=== PATIENT | female | born 1965 | race Caucasian/White ===

== ENCOUNTER → 2018-11-14 | Day surgery (SDC) | payer OTHER ==
[2018-11-11 15:48] LABS: Basophils # (auto) 0.1 uL; Basophils % (auto) 1.1 % (0.0-2.0); Eosinophils # (auto) 0.6 uL; Eosinophils % (auto) 9.2 % (0.0-7.0); Hematocrit 37.3 % (36.0-46.0); Hemoglobin 12.2 g/dL (12.2-16.2); Lymphocytes # (auto) 1.5 uL; Lymphocytes % (auto) 24.4 % (10.0-50.0); Mean Corpuscular Hemoglobin 28.8 pg (28.0-32.0); Mean Corpuscular Hgb Conc. 32.6 g/dL (32.0-36.0); Mean Corpuscular Volume 88.2 fL (80.0-100.0); Monocytes # (auto) 0.6 uL; Monocytes % (auto) 9.9 % (0.0-12.0); Neutrophils # (auto) 3.4 uL; Neutrophils % (auto) 55.4 % (37.0-80.0); Nucleated Red Blood Cells % 0.1 %; Platelet Count (auto) 412 10^3/uL (140-450); Red Blood Cells 4.23 10^6/uL (4.0-5.20); White Blood Cell 6.2 10^3/uL (4.4-10.8)
[2018-11-11 15:52] LABS: Urine Bacteria NONE SEEN /hpf (None Seen); Urine Blood Negative /uL (Negative); Urine Hyaline Cast MOD /lpf (0 - 2); Urine Mucus FEW (None Seen); Urine WBC 1 /hpf (0 - 5)
[2018-11-11 16:11] LABS: Albumin 3.1 g/dL (3.4-5.0); BUN/Creatinine Ratio 12.7; Calcium 8.2 mg/dL (8.5-10.1); Potassium 5.5 mmol/L (3.5-5.1)
[2018-11-11 16:14] LABS: Bilirubin, Total 0.3 mg/dL (0.2-1.0); Total Protein 6.8 g/dL (6.4-8.2)
[2018-11-11 16:26] LABS: INR 1.01 (0.9-1.15); Partial Thromboplastin Time 30.5 sec (23.78-33.04); Prothrombin Time 10.8 sec (9.27-12.13)
[~2018-11-14] VITALS: Ht 160 cm; Wt 56.7 kg
[~2018-11-14] MED LIST: ALBUAER3 IN; BETAMETHASONE ACET (6MG/ML) 5ML VIAL ONE; BUPIVACAINE 0.25% INJ 50ML VIAL ONE; BUPIVACAINE W/ EPINEPH 0.25% INJ 50ML MDV ONE; FERR27TA2 PO; FLUT110A INH; METH10T PO; ONDANSETRON HCL 4 MG/2 ML VIAL IV ONE; OXY20CRT PO; PAR20T PO; PREG50CA PO; PROPOFOL 10 MG/ML 20 ML IV ONE; ROCURONIUM 10MG/ML 10ML VIAL IV ONE; ceFAZolin 1GM/50ML 50 ML IV ONE; ePHEDrine SULFATE 50 MG/ML AMP IV PRN; fentaNYL CITRATE 5 ML ONE; hydrALAZINE HCL 20 MG/ML VL IV PRN
[2018-11-14] MEDS: MORPHINE SULFATE 4 MG/ML SYR/VIAL IV PRN ×4 (11:13→12:09)
[2018-11-14] MEDS: HYDROmorphone HCL 2 MG/ML VL IV PRN ×4 (11:36→12:39)
[2018-11-14 13:10] VITALS: BP 129/70
== END | disposition home or self-care (01) ==
LOC: SUR 06:27
PROVIDERS: ATTEND Orthopaedic Surgery
DX: S42.202A Unspecified fracture of upper end of left humerus, initial encounter for closed fracture (principal); T14.8XXA Other injury of unspecified body region, initial encounter; S46.012A Strain of muscle(s) and tendon(s) of the rotator cuff of left shoulder, initial encounter; J45.909 Unspecified asthma, uncomplicated; E66.9 Obesity, unspecified; Z98.84 Bariatric surgery status; Z98.51 Tubal ligation status; Z90.49 Acquired absence of other specified parts of digestive tract; Z98.890 Other specified postprocedural states; X58.XXXA Exposure to other specified factors, initial encounter; Y93.89 Activity, other specified; Y92.89 Other specified places as the place of occurrence of the external cause; Y99.8 Other external cause status
CPT/HCPCS: 23410; 23430; 23630; 36415; 73060; 76000; 80053; 81001; 85025; 85610; 85730; J0690; J0702; J1170; J2270; J2704; J3010; J3490